=== PATIENT | female | born 1990 | race Caucasian/White ===

== ENCOUNTER 2021-04-06 09:37 | Outpatient (CLI) | payer MEDICAID ==
[~2021-04-06] VITALS: Ht 167.6 cm; Wt 121.8 kg
--- NOTE | 2021-04-06 09:50 | NUR ---
Pt arrived on unit ambulatory and with complaints of decreased movement. Pt denies any contractions, leaking of fluid or vaginal bleeding. Pt also reports last normal movement she felt was this last night. EFM and toco monitors started. Vital signs WNL. Audible movement heard and pt reports feeling baby while this RN was still in the room. Dr. Perez on the unit. FHR tracing reviewed. Orders for discharge home received.
[2021-04-06 10:20] VITALS: BP 110/66; PULSE 111; TEMP 97.7
== END 2021-04-06 10:35 | disposition home or self-care (01) ==
LOC: LDRO 09:37
DX: O36.8130 Decreased fetal movements, third trimester, not applicable or unspecified (principal); Z3A.37 37 weeks gestation of pregnancy

== ENCOUNTER 2021-04-17 09:54 | Inpatient (IN) | payer MEDICAID ==
[2021-04-17] VITALS (16 sets, daily range): BP systolic 101–125; BP diastolic 41–72; PULSE 80–113; TEMP 97.6–98.6
[~2021-04-17] VITALS: Ht 167.7 cm; Wt 123.6 kg
--- NOTE | 2021-04-17 10:25 | NUR ---
Patient ambulatory to 220 with spouse, changed into gown, FHR/TOCO monitors placed. Patient here for scheduled Csection and denies any regular contractions/leaking of fluid/vaginal bleeding/decreased movement. Plan of care discussed. 1050:IV started in right hand, blood drawn and to lab, LR infusing. Assessment done, consents signed, and packet given.
[2021-04-17 11:07] LABS: BASO % 0.3 % (0.0-2.0); EOS # 0.1 K/mm3 (0.0-0.7); EOS % 0.6 % (0.0-4.0); GRAN # 5.8 K/mm3 (1.4-6.5); GRAN % 67.9 % (42.2-75.2); HEMOGLOBIN 11.4 g/dl (12.5-16.0); LYMPH # 2.1 K/mm3 (1.2-3.4); LYMPH % 24.9 % (20.0-51.0); MEAN CELL VOLUME 84 fl (80.0-100.0); MEAN CORPUSCULAR HEMOGLOBIN 28 pg (27-31); MEAN CORPUSCULAR HGB CONC 33 g/dl (33.0-37.0); MEAN PLATELET VOLUME 10.2 fl (7.4-10.4); MONO # 0.5 K/mm3 (0.1-0.6); MONO % 5.7 % (1.7-9.3); PLATELET COUNT 291 K/mm3 (130-400); RED BLOOD COUNT 4.14 M/mm3 (4.10-5.30); REDCELL DISTRIBUTION WIDTH-CV 13.9 % (11.5-14.5)
[2021-04-17 11:13] LABS: HEMATOCRIT 34.7 % (37.0-47.0)
[2021-04-18 00:35] VITALS: BP 114/63; PULSE 102; TEMP 97.6
[2021-04-18 07:30] VITALS: BP 134/76; PULSE 100; TEMP 97.7
[2021-04-18] MEDS ORDERED: IBU600 MG PO (10:06)
[2021-04-18] MEDS ORDERED: ROXICODONE 55 MG/TAB PO (10:06)
[2021-04-18 11:20] VITALS: BP 108/63; PULSE 100; TEMP 97.5
== END 2021-04-18 14:20 | disposition home or self-care (01) | DRG 788 ==
LOC: OB 09:54
PROVIDERS: ADMIT Obstetrics & Gynecology
PROC: 10D00Z1 Extraction of Products of Conception, Low, Open Approach (ICD-10-PCS; principal; 2021-04-17)
DX: O34.211 Maternal care for low transverse scar from previous cesarean delivery (principal); O36.1930 Maternal care for other isoimmunization, third trimester, not applicable or unspecified; Z37.0 Single live birth; Z3A.39 39 weeks gestation of pregnancy
CPT/HCPCS: J0171; J0690; J1885; J2175; J2250; J2370; J2405; J2590; J7120